=== PATIENT | female | born 1975 | race Two or more races ===

== ENCOUNTER 2020-03-29 15:41 | Emergency (ER) | payer SELFPAY ==
[~2020-03-29] VITALS: Ht 157.5 cm; Wt 59.4 kg
[2020-03-29 16:35] LABS: Albumin 4.1 g/dL (3.4-5.0); Calcium 9.3 mg/dL (8.5-10.1)
[2020-03-29 16:39] LABS: BUN/Creatinine Ratio 13.9; Bilirubin, Total 0.6 mg/dL (0.2-1.0)
[2020-03-29 17:15] LABS: Urine Bacteria FEW /hpf (None Seen); Urine Blood Negative /uL (Negative); Urine Mucus FEW (None Seen); Urine Specific Gravity 1.013 (1.001-1.035); Urine WBC 1 /hpf (0 - 5)
[2020-03-29] MEDS ORDERED: MECLIZINE HCL 25 MG TAB PO ONE (17:30)
[2020-03-29 17:44] VITALS: BP 132/82
== END 2020-03-29 17:47 | disposition home or self-care (01) ==
LOC: ER 15:41
DX: S09.90XA Unspecified injury of head, initial encounter (principal); V28.0XXA Motorcycle driver injured in noncollision transport accident in nontraffic accident, initial encounter; Y93.89 Activity, other specified; Y99.8 Other external cause status; Y92.89 Other specified places as the place of occurrence of the external cause
CPT/HCPCS: 36415; 70450; 72125; 80053; 81001; 99285; J8597